=== PATIENT | female | born 1960 | race Caucasian/White ===

== ENCOUNTER 2021-10-18 12:00 | Emergency (ER) | payer OTHER ==
[~2021-10-18] VITALS: Ht 167.6 cm; Wt 90.7 kg
[2021-10-18 12:42] VITALS: BP 149/92
[2021-10-18] MEDS ORDERED: ACETAMINOPHEN 325 MG TAB PO ONE (13:25)
[2021-10-18] MEDS ORDERED: KETOROLAC 60 MG/2 ML VIAL IM ONE (13:25)
--- NOTE | 2021-10-18 13:36 | NUR ---
61/F BIB SELF FOR C/O BODY ACHES, COUGH AND FLANK PAIN X3 DAYS. STATES SISTER AT HOME HAS SAME SYMPTOMS, RECEIVED NEGATIVE COVID TEST ON WEDNESDAY. DENIES FEVERS OR SOB. PATIENT REPORTS INTERMITTENT EPISODES OF DYSURIA, AND STATES URINE HAS BEEN DARKER THAN USUAL, DENIES HEMATURIA.
[2021-10-18 13:48] LABS: BASOPHILS % (AUTO) 0.7 % (0.0-2.0); EOSINOPHILS # (AUTO) 0.1 K/uL (0-0.4); EOSINOPHILS % (AUTO) 2.6 % (0.0-4.0); HEMATOCRIT 38.9 % (36-48); HEMOGLOBIN 13.6 g/dL (12.0-16.0); LYMPHOCYTES # (AUTO) 1.5 K/uL (2.5-16.5); LYMPHOCYTES % (AUTO) 27.6 % (20.5-51.1); MEAN CORPUSCULAR HEMOGLOBIN 32 pg (27-31); MEAN CORPUSCULAR HGB CONC 35 g/dL (33-37); MEAN CORPUSCULAR VOLUME 91.5 fL (80-94); MONOCYTES # (AUTO) 0.6 K/uL (0.8-1.0); MONOCYTES % (AUTO) 11.4 % (1.7-9.3); NEUTROPHILS # (AUTO) 3.2 K/uL (1.8-7.7); NEUTROPHILS % (AUTO) 57.7 % (42.2-75.2); PLATELET COUNT (AUTO) 138 K/uL (140-450); RED BLOOD CELL COUNT(AUTO) 4.25 MIL/uL (4.20-5.40); RED CELL DISTRIBUTION WIDTH 12.9 % (11.6-13.7); WHITE BLOOD COUNT (AUTO) 5.6 K/uL (4.8-10.8)
[2021-10-18 14:19] LABS: ANION GAP 13.5 (8-16); CARBON DIOXIDE 27.5 mmol/L (21-32); CREATININE 0.8 mg/dL (0.6-1.3); TOTAL BILIRUBIN 0.8 mg/dL (0.0-1.0)
[2021-10-18] MEDS ORDERED: ONDA-188 SL (15:31)
[2021-10-18] MEDS ORDERED: CEPH-588 PO (15:31)
[2021-10-18] MEDS ORDERED: NAPR-54 PO (15:31)
[2021-10-18 16:50] VITALS: BP 143/89
--- NOTE | 2021-10-18 16:50 | NUR ---
Patient discharged with v/s stable. Written and verbal after care instructions ABOUT URINARY TRACT INFECTION AND FLANK PAIN given and explained. Patient alert, oriented and verbalized understanding of instructions. Ambulatory with steady gait. All questions addressed prior to discharge. ID band removed. Patient advised to follow up with PMD. Rx of KEFLEX, NAPROSYN AND ZOFRAN given. Patient educated on indication of medication including possible reaction and side effects. Opportunity to ask questions provided and answered.
== END 2021-10-18 18:15 | disposition home or self-care (01) ==
LOC: MED 12:00
DX: N39.0 Urinary tract infection, site not specified (principal); Z79.899 Other long term (current) drug therapy
CPT/HCPCS: 36415; 80053; 81002; 83690; 85025; 96372; 99283; J1885

== ENCOUNTER 2021-10-20 14:13 | Emergency (ER) | payer OTHER ==
[~2021-10-20] VITALS: Ht 167.6 cm; Wt 89.8 kg
[~2021-10-20 14:13] MED LIST: CEPH-588 PO; NAPR-54 PO; ONDA-188 SL
[2021-10-20 15:08] VITALS: BP 138/87
[2021-10-20 16:33] VITALS: BP 138/87
--- NOTE | 2021-10-20 16:34 | NUR ---
Patient discharged with v/s stable. Written and verbal after care instructions given and explained. Patient verbalized understanding. Ambulatory with steady gait. All questions addressed prior to discharge. Advised to follow up with PMD. pt was given work note signed
== END 2021-10-20 16:34 | disposition home or self-care (01) ==
LOC: MED 14:13
DX: Z02.89 Encounter for other administrative examinations (principal); Z79.899 Other long term (current) drug therapy
CPT/HCPCS: 99281

== ENCOUNTER 2022-03-12 22:58 | Emergency (ER) | payer OTHER ==
[~2022-03-12] VITALS: Ht 167.6 cm; Wt 90.3 kg
[2022-03-12 23:11] VITALS: BP 134/78
--- NOTE | 2022-03-12 23:15 | NUR ---
PATIENT TO LOBBY
--- NOTE | 2022-03-12 23:30 | NUR ---
61 Y.O. F BIB SELF C/O FLU LIKE SX THAT HAPPENED A FEW HOURS AGO. HAS DIARRHEA, NAUSEA, CHILLS, MOLINA, BODY ACHES. DENIES TAKING ANY MEDICATION.DRANK SOME 7UP BEFORE COMING IN AND HAS KEPT THAT DOWN. PAIN IS 10/10. NO CHEST PAIN OR SOB. PT A&OX4, SKIN INTACT, STEADY GAIT AND NO TROUBLE GOING TO THE BATHROOM. PMH: TUBAL LIGATION, TONSILLECTOMY, APPENDECTOMY NKA
--- NOTE | 2022-03-13 00:26 | NUR ---
patient ambulated to bed 7
[2022-03-13] MEDS ORDERED: NACL 0.9% 1,000 ML IV ONE (00:30)
[2022-03-13] MEDS ORDERED: KETOROLAC 30 MG/ML VIAL IVP ONE (00:30)
[2022-03-13 00:48] LABS: BASOPHILS % (AUTO) 0.1 % (0.0-2.0); EOSINOPHILS # (AUTO) 0.1 K/uL (0-0.4); HEMATOCRIT 37.2 % (36-48); HEMOGLOBIN 12.6 g/dL (12.0-16.0); LYMPHOCYTES # (AUTO) 0.6 K/uL (2.5-16.5); LYMPHOCYTES % (AUTO) 4.7 % (20.5-51.1); MEAN CORPUSCULAR HEMOGLOBIN 31 pg (27-31); MEAN CORPUSCULAR HGB CONC 34 g/dL (33-37); MEAN CORPUSCULAR VOLUME 91.1 fL (80-94); MONOCYTES # (AUTO) 0.7 K/uL (0.8-1.0); MONOCYTES % (AUTO) 5.1 % (1.7-9.3); NEUTROPHILS # (AUTO) 11.8 K/uL (1.8-7.7); NEUTROPHILS % (AUTO) 89.1 % (42.2-75.2); PLATELET COUNT (AUTO) 131 K/uL (140-450); RED BLOOD CELL COUNT(AUTO) 4.09 MIL/uL (4.20-5.40); RED CELL DISTRIBUTION WIDTH 12.9 % (11.6-13.7); WHITE BLOOD COUNT (AUTO) 13.2 K/uL (4.8-10.8)
[2022-03-13 01:02] LABS: ALBUMIN 3.7 g/dL (3.4-5.0); ANION GAP 11.1 (8-16); CARBON DIOXIDE 26.4 mmol/L (21-32); CREATININE 0.8 mg/dL (0.6-1.3); POTASSIUM 3.5 mmol/L (3.5-5.1); TOTAL BILIRUBIN 0.6 mg/dL (0.0-1.0)
[2022-03-13 02:38] LABS: APPEARANCE,URINE CLOUDY (CLEAR); BILIRUBIN,URINE NEGATIVE (NEGATIVE); BLOOD, URINE TRACE-I (NEGATIVE); COLOR,URINE YELLOW (YELLOW); LEUKOCYTE ESTERASE ,URINE 1+ (NEGATIVE); NITRITE, URINE POSITIVE (NEGATIVE); UGLUCOSE NEGATIVE (NEGATIVE)
[2022-03-13 02:45] LABS: RBC,URINE 0-5 /HPF (0-5); WBC,URINE 20-60 /HPF (0-5)
[2022-03-13] MEDS ORDERED: cefTRIAXone 1,000 MG VIAL ONE (03:20)
[2022-03-13] MEDS ORDERED: ACETAMINOPHEN EXTRA STRENGTH 500 MG TAB PO ONE (03:35)
[2022-03-13] MEDS ORDERED: NITR100C7 PO (03:53)
[2022-03-13] MEDS ORDERED: NAPR-54 PO (03:53)
--- NOTE | 2022-03-13 04:13 | NUR ---
IV removed, catheter intact and site benign. Applied folded 4x4 gauze and tape to stop bleeding.
--- NOTE | 2022-03-13 04:17 | NUR ---
Patient discharged. Written and verbal after care instructions given and explained. Patient alert, oriented and verbalized understanding of instructions. Ambulatory with steady gait. All questions addressed prior to discharge. ID band removed. Patient advised to follow up with PMD. Rx of Naproxen and Macrobid 100mg capsule given. Patient educated on indication of medication including possible reaction and side effects. Opportunity to ask questions provided and answered.
[2022-03-13 04:21] VITALS: BP 131/76
== END 2022-03-13 04:17 | disposition home or self-care (01) ==
LOC: MED 22:58
DX: N39.0 Urinary tract infection, site not specified (principal); R19.7 Diarrhea, unspecified; R11.2 Nausea with vomiting, unspecified; M79.18 Myalgia, other site; Z79.1 Long term (current) use of non-steroidal anti-inflammatories (NSAID); Z79.2 Long term (current) use of antibiotics; Z79.899 Other long term (current) drug therapy
CPT/HCPCS: 36415; 80053; 81001; 83605; 85025; 87040; 87086; 96361; 96365; 96375; 99285; J0696; J1885; J7030

== ENCOUNTER 2022-03-19 12:10 | Emergency (ER) | payer OTHER ==
[~2022-03-19] VITALS: Ht 167.6 cm; Wt 88.5 kg
[~2022-03-19 12:10] MED LIST changes: +NITR100C7 PO
[2022-03-19 12:18] VITALS: BP 141/77
--- NOTE | 2022-03-19 12:48 | NUR ---
IV 18GA RT A/C DONE BLOOD SENT TO LAB, UA DONE
[2022-03-19 12:52] LABS: BASOPHILS # (AUTO) 0.1 K/uL (0.00-0.22); EOSINOPHILS # (AUTO) 0.2 K/uL (0-0.4); HEMOGLOBIN 12.8 g/dL (12.0-16.0); LYMPHOCYTES # (AUTO) 1.5 K/uL (2.5-16.5); LYMPHOCYTES % (AUTO) 21.8 % (20.5-51.1); MEAN CORPUSCULAR HEMOGLOBIN 31 pg (27-31); MEAN CORPUSCULAR HGB CONC 35 g/dL (33-37); MEAN CORPUSCULAR VOLUME 89.8 fL (80-94); MONOCYTES # (AUTO) 0.8 K/uL (0.8-1.0); MONOCYTES % (AUTO) 11.6 % (1.7-9.3); NEUTROPHILS # (AUTO) 4.2 K/uL (1.8-7.7); NEUTROPHILS % (AUTO) 62.6 % (42.2-75.2); PLATELET COUNT (AUTO) 157 K/uL (140-450); RED BLOOD CELL COUNT(AUTO) 4.11 MIL/uL (4.20-5.40); WHITE BLOOD COUNT (AUTO) 6.7 K/uL (4.8-10.8)
[2022-03-19 12:59] LABS: APPEARANCE,URINE CLEAR (CLEAR); BILIRUBIN,URINE NEGATIVE (NEGATIVE); BLOOD, URINE TRACE-I (NEGATIVE); COLOR,URINE YELLOW (YELLOW); LEUKOCYTE ESTERASE ,URINE NEGATIVE (NEGATIVE); NITRITE, URINE NEGATIVE (NEGATIVE); UGLUCOSE NEGATIVE (NEGATIVE)
[2022-03-19 13:07] LABS: ALBUMIN 3.7 g/dL (3.4-5.0); ANION GAP 11.2 (8-16); CARBON DIOXIDE 24.4 mmol/L (21-32); CREATININE 0.8 mg/dL (0.6-1.3); POTASSIUM 3.6 mmol/L (3.5-5.1); TOTAL BILIRUBIN 0.6 mg/dL (0.0-1.0)
[2022-03-19 13:15] LABS: OTHER CASTS, URINE None Seen /LPF (None Seen); RBC,URINE 0-5 /HPF (0-5); WBC,URINE 0-5 /HPF (0-5)
[2022-03-19] MEDS: FAMOTIDINE 20 MG/2 ML VIAL IVP ONE (13:21)
[2022-03-19] MEDS: NACL 0.9% 1,000 ML IV ONE (13:23)
[2022-03-19] MEDS: ONDANSETRON 4 MG/2 ML VIAL IVP ONE (13:23)
--- NOTE | 2022-03-19 13:30 | NUR ---
Ultrasound at bedside.
[2022-03-19] MEDS: BISMUTH SUBSALICYLATE 15 ML UDBTL PO ONE (13:59)
[2022-03-19] MEDS ORDERED: BISM262O42 PO (14:15)
[2022-03-19] MEDS ORDERED: FAMO-90 PO (14:15)
[2022-03-19] MEDS ORDERED: ONDA-188 SL (14:15)
--- NOTE | 2022-03-19 14:24 | NUR ---
Dr. Cobb re-evaluating patient at bedside.
[2022-03-19 15:25] VITALS: BP 131/74
--- NOTE | 2022-03-19 15:25 | NUR ---
Patient discharged with v/s stable. Written and verbal after care instructions given. Patient alert, oriented and verbalized understanding of instructions. Ambulatory with steady gait. All questions addressed prior to discharge. ID band removed. Patient advised to follow up with PMD. Rx of Pepcid and Zofran given. Opportunity to ask questions provided and answered.
== END 2022-03-19 15:25 | disposition home or self-care (01) ==
LOC: MED 12:10
DX: A08.4 Viral intestinal infection, unspecified (principal); K21.9 Gastro-esophageal reflux disease without esophagitis; Z79.899 Other long term (current) drug therapy; Z90.49 Acquired absence of other specified parts of digestive tract; Z87.442 Personal history of urinary calculi; Z86.19 Personal history of other infectious and parasitic diseases
CPT/HCPCS: 36415; 76705; 80053; 81001; 83690; 85025; 96361; 96374; 96375; 99284; J2405; J3490; J7030; Q0092

== ENCOUNTER 2022-07-24 09:10 | Day surgery (SDC) | payer OTHER ==
[~2022-07-24] VITALS: Ht 167.6 cm; Wt 89.4 kg
[~2022-07-24 09:10] MED LIST changes: +BISM262O42 PO; +FAMO-90 PO
[2022-07-24] MEDS ORDERED: MIDAZOLAM 5 MG/5 ML VIAL ONE (12:32)
[2022-07-24] MEDS ORDERED: fentaNYL citrate 0.05 MG/ML VIAL ONE (12:32)
[2022-07-24] MEDS ORDERED: LIDOCAINE 2% 100 MG/5 ML UJET TP ONE (12:33)
[2022-07-24] MEDS ORDERED: fentaNYL citrate 0.05 MG/ML VIAL IVP ONE (14:40)
== END 2022-07-24 13:32 | disposition home or self-care (01) ==
LOC: MMU 09:10 → MDS 09:10
PROVIDERS: ATTEND Internal Medicine Gastroenterology
DX: Z12.11 Encounter for screening for malignant neoplasm of colon (principal); K57.30 Diverticulosis of large intestine without perforation or abscess without bleeding; Z20.822 Contact with and (suspected) exposure to COVID-19; Z80.0 Family history of malignant neoplasm of digestive organs
CPT/HCPCS: 45378; 87426; J3010; J2250